=== PATIENT | female | born 1940 | race Caucasian/White ===

== ENCOUNTER 2016-05-07 12:51 | Inpatient (IN) | payer MEDICARE, OTHER ==
[~2016-05-07] VITALS: Ht 170.2 cm; Wt 77.9 kg
[~2016-05-07 12:51] MED LIST: ALPR0.25 PO; AMLO10TA2 PO; ATOR10TA PO; NOR10T PO; TRIAMTERENE/HCTZ PO; ZOLP10TA6 PO; [UNRECOGNIZED DRUG - OTHER]
[2016-05-07 13:44] LABS: Basophils # (auto) 0 uL; Basophils % (auto) 0.3 % (0.0-2.0); Eosinophils # (auto) 0.1 uL; Eosinophils % (auto) 2.1 % (0.0-7.0); Hematocrit 47.4 % (36.0-46.0); Hemoglobin 15.5 g/dL (12.2-16.2); Lymphocytes # (auto) 2.3 uL; Lymphocytes % (auto) 32.9 % (10.0-50.0); Mean Corpuscular Hemoglobin 28.7 pg (28.0-32.0); Mean Corpuscular Hgb Conc. 32.6 g/dL (32.0-36.0); Mean Corpuscular Volume 87.9 fL (80.0-100.0); Monocytes # (auto) 0.6 uL; Monocytes % (auto) 8.2 % (0.0-12.0); Neutrophils % (auto) 56.5 % (37.0-80.0); Platelet Count (auto) 221 10^3/uL (140-450); Red Cell Distribution Width 14.3 % (11.6-16.0)
[2016-05-07 14:01] LABS: Albumin 3.8 g/dL (3.4-5.0); BUN/Creatinine Ratio 15.3; Bilirubin, Total 0.8 mg/dL (0.2-1.0); Calcium 9.6 mg/dL (8.5-10.1); Potassium 3.9 mmol/L (3.5-5.1); Total Protein 8.2 g/dL (6.4-8.2)
[2016-05-07] MEDS ORDERED: ASPirin 81 mg TAB PO ONE (15:30)
[2016-05-07] MEDS ORDERED: cloNIDine HCL 0.1 MG TAB PO ONE (15:45)
[2016-05-07 15:56] LABS: B-Type Natriuretic Peptide 67.86 pg/mL (0-100)
[2016-05-07 15:58] LABS: Temperature: 21.9 C (20.0-25.0)
[2016-05-07] MEDS ORDERED: LORazepam 0.5 MG TAB PO PRN (16:00)
[2016-05-07] MEDS ORDERED: DEXTROSE (50%) 50ML SYRG IV PRN (16:00)
[2016-05-07] MEDS ORDERED: TEMAZEPAM 15 MG CAP PO PRN (16:00)
[2016-05-07] MEDS ORDERED: PROMETHAZINE HCL 25 MG/ML 1ML IV PRN (16:00)
[2016-05-07] MEDS ORDERED: MORPHINE SULF INJ 2 MG/ML SYRINGE 1ML IV PRN ×2 (16:00)
[2016-05-07] MEDS ORDERED: ACETAMINOPHEN 500 MG TAB PO PRN (16:00)
[2016-05-07] MEDS ORDERED: NITROGLYCERIN 0.4 MG SL TAB SL PRN (16:00)
[2016-05-07] MEDS ORDERED: LABETALOL HCL 5 MG/ML 4ML SYRINGE IV PRN ×2 (16:00)
[2016-05-07] MEDS ORDERED: LACTULOSE 20Gm/30ML SOLN PO PRN (16:00)
[2016-05-07 16:29] LABS: Urine Bilirubin Negative (Negative); Urine Blood Negative /uL (Negative); Urine Color Colorless (Yellow); Urine Glucose Normal (Normal); Urine Ketone Negative (Negative); Urine Nitrite Negative (Negative); Urine RBC <1 /hpf (0 - 4); Urine Squamous Epithelial Cell FEW /hpf (<5); Urine Urobilinogen Normal (Negative); Urine pH 5.5 (5.0-8.0)
[2016-05-07 16:53] LABS: Temperature: 22.7 C (20.0-25.0)
[2016-05-07] MEDS: InsuLIN REG 1unit/0.01ml Soln (100units/ml) SC SCH ×2 (17:00→22:00)
[2016-05-07] MEDS: ENOXAPARIN SOD 40 MG/0.4 ML SYRINGE SC SCH (17:04)
[2016-05-07] MEDS: ACCU-CHEK COMFORT CURVE STRIP VI SCH ×2 (17:04→22:13)
[2016-05-07] MEDS ORDERED: ATORVASTATIN 20 MG TAB PO SCH (22:00)
[2016-05-07] MEDS: ATORVASTATIN 20 MG TAB PO SCH (22:13)
[2016-05-07 22:51] LABS: Cholesterol 147 mg/dL (<200); HDL Cholesterol 59 mg/dL (40-59); LDL Cholesterol 79 mg/dL (<100); Triglycerides 148 mg/dL (<150)
[2016-05-08] MEDS: hydrALAZINE HCL 20 MG/ML VL IV PRN (02:36)
[2016-05-08] MEDS: HYDROcodone-ACET 5/325MG TAB PO PRN ×2 (03:18→10:41)
[2016-05-08 04:00] VITALS: BP 175/82
[2016-05-08 05:01] LABS: Albumin 3.8 g/dL (3.4-5.0); BUN/Creatinine Ratio 17.1; Bilirubin, Total 0.8 mg/dL (0.2-1.0); Potassium 3.6 mmol/L (3.5-5.1); Total Protein 7.4 g/dL (6.4-8.2)
[2016-05-08 05:04] VITALS: BP 138/64
[2016-05-08] MEDS: InsuLIN REG 1unit/0.01ml Soln (100units/ml) SC SCH ×4 (06:29→21:56)
[2016-05-08] MEDS: ACCU-CHEK COMFORT CURVE STRIP VI SCH ×4 (06:29→21:56)
[2016-05-08 08:09] VITALS: BP 146/77
[2016-05-08] MEDS: ASPirin 81 mg TAB PO SCH (10:37)
[2016-05-08 17:24] VITALS: BP 160/94
[2016-05-08] MEDS: ENOXAPARIN SOD 40 MG/0.4 ML SYRINGE SC SCH (20:06)
[2016-05-08] MEDS: CYANOCOBALAMIN 500 MCG TAB PO SCH (21:20)
[2016-05-08] MEDS: ATORVASTATIN 20 MG TAB PO SCH (21:20)
[2016-05-08 22:00] VITALS: BP 145/73
[2016-05-09 05:00] VITALS: BP 157/78
[2016-05-09] MEDS: InsuLIN REG 1unit/0.01ml Soln (100units/ml) SC SCH ×3 (06:16→16:55)
[2016-05-09] MEDS: ACCU-CHEK COMFORT CURVE STRIP VI SCH ×3 (06:16→16:55)
[2016-05-09] MEDS ORDERED: INFLUENZA QUAD 2016-2017 0.5 ML SYRG IM ONE (08:00)
[2016-05-09 08:58] VITALS: BP 176/80
[2016-05-09] MEDS: CYANOCOBALAMIN 500 MCG TAB PO SCH (09:05)
[2016-05-09] MEDS: hydrALAZINE HCL 20 MG/ML VL IV PRN (09:05)
[2016-05-09] MEDS: ASPirin 81 mg TAB PO SCH (09:05)
[2016-05-09 09:48] VITALS: BP 164/74
[2016-05-09] MEDS ORDERED: PREGABALIN 25 MG CAP PO SCH (11:00)
[2016-05-09 13:00] VITALS: BP 149/71
[2016-05-09 15:12] VITALS: BP 149/71
[2016-05-09] MEDS: ENOXAPARIN SOD 40 MG/0.4 ML SYRINGE SC SCH (16:55)
[2016-05-09 17:00] VITALS: BP 147/74
== END 2016-05-09 18:00 | disposition home or self-care (01) | DRG 291 ==
LOC: ER 12:52 → TELE 12:53 → TELE-WESTW 05-08 04:07
PROVIDERS: ADMIT Internal Medicine; ATTEND Family Medicine
DX: I13.0 Hypertensive heart and chronic kidney disease with heart failure and stage 1 through stage 4 chronic kidney disease, or unspecified chronic kidney disease (principal); I63.9 Cerebral infarction, unspecified; B02.29 Other postherpetic nervous system involvement; N18.3 Chronic kidney disease, stage 3 (moderate); E11.21 Type 2 diabetes mellitus with diabetic nephropathy; E11.22 Type 2 diabetes mellitus with diabetic chronic kidney disease; E78.5 Hyperlipidemia, unspecified; E83.119 Hemochromatosis, unspecified; F17.210 Nicotine dependence, cigarettes, uncomplicated; G56.03 Carpal tunnel syndrome, bilateral upper limbs; I50.9 Heart failure, unspecified; J44.9 Chronic obstructive pulmonary disease, unspecified; G89.29 Other chronic pain; M54.5 Low back pain; B02.9 Zoster without complications; Z79.899 Other long term (current) drug therapy; Z90.49 Acquired absence of other specified parts of digestive tract; Z98.51 Tubal ligation status; Z82.49 Family history of ischemic heart disease and other diseases of the circulatory system; Z23 Encounter for immunization
CPT/HCPCS: 36415; 70450; 70551; 80053; 80061; 81001; 82550; 82607; 82746; 82962; 83036; 83880; 84443; 84484; 85025; 85652; 93005; 93306; 93886; 94761; 97001; G0434; J3490

== ENCOUNTER 2020-03-10 12:08 | Inpatient (IN) | payer MEDICARE, OTHER ==
[~2020-03-10] VITALS: Ht 170.2 cm; Wt 70.2 kg
[~2020-03-10 12:08] MED LIST changes: +AMLO10TA13 PO; -AMLO10TA2 PO; -TRIAMTERENE/HCTZ PO; -[UNRECOGNIZED DRUG - OTHER]
[2020-03-10 13:29] LABS: Basophils # (auto) 0 10 ^3/uL (0-0.2); Basophils % (auto) 0.6 % (0.0-2.0); Eosinophils # (auto) 0 10 ^3/uL (0-0.8); Eosinophils % (auto) 0.6 % (0.0-7.0); Hematocrit 50.2 % (36.0-46.0); Mean Corpuscular Hemoglobin 29.9 pg (28.0-32.0); Mean Corpuscular Hgb Conc. 33.8 g/dL (32.0-36.0); Mean Corpuscular Volume 88.6 fL (80.0-100.0); Monocytes # (auto) 0.6 10 ^3/uL (0-1.3); Monocytes % (auto) 9.7 % (0.0-12.0); Neutrophils # (auto) 4.8 10 ^3/uL (1.6-8.6); Neutrophils % (auto) 73.1 % (37.0-80.0); Nucleated Red Blood Cells % 0.1 %; Platelet Count (auto) 194 10^3/uL (140-450); Red Blood Cells 5.67 10^6/uL (4.0-5.20); White Blood Cell 6.5 10^3/uL (4.4-10.8)
[2020-03-10] MEDS ORDERED: cloNIDine HCL 0.1 MG TAB PO ONE (13:45)
[2020-03-10 13:46] LABS: Anion Gap 11 (5-15); Blood Urea Nitrogen 13 mg/dL (7-18); Calcium 9.7 mg/dL (8.5-10.1); Carbon Dioxide 23 mmol/L (21-32); Chloride 105 mmol/L (98-107); Glucose 111 mg/dL (74-106); Potassium 3.5 mmol/L (3.5-5.1); Sodium 139 mmol/L (136-145)
[2020-03-10 13:48] LABS: Alanine Aminotransferase 26 U/L (13-56); Aspartate Aminotransferase 22 U/L (15-37); BUN/Creatinine Ratio 12.7; GFR African American 67 mL/min; GFR Non-African American 55 mL/min
[2020-03-10 13:52] LABS: Alkaline Phosphatase 98 U/L (45-117); Bilirubin, Total 0.8 mg/dL (0.2-1.0); Total Protein 8.2 g/dL (6.4-8.2)
[2020-03-10] MEDS ORDERED: ACETAMINOPHEN 500 MG TAB PO PRN (18:30)
[2020-03-10] MEDS ORDERED: LACTULOSE 20Gm/30ML SOLN PO PRN (18:30)
[2020-03-10] MEDS ORDERED: TEMAZEPAM 15 MG CAP PO PRN (18:30)
[2020-03-10] MEDS ORDERED: DEXTROSE (50%) 50ML SYRG IV PRN (18:30)
[2020-03-10] MEDS ORDERED: ONDANSETRON HCL 4 MG/2 ML VIAL IV PRN (18:30)
[2020-03-10] MEDS ORDERED: traMADol HCL 50 MG TAB PO PRN (18:30)
[2020-03-10] MEDS ORDERED: NITROGLYCERIN 0.4 MG SL TAB SL PRN (18:30)
[2020-03-10] MEDS ORDERED: MORPHINE SULF INJ 2 MG/ML SYRINGE 1ML IV PRN (18:30)
[2020-03-10 20:10] VITALS: BP 126/69
--- NOTE | 2020-03-10 20:10 | NUR ---
assumed care of pt at this time, who ambulated to bed from [facility] with steady gait, IV 22g to lt hand flushes freely, site benign. pt is free from s/s of distress.
[2020-03-10 21:00] VITALS: BP 126/69
[2020-03-10] MEDS ORDERED: ALPRAZolam 0.25 MG TAB PO SCH (22:00)
[2020-03-10] MEDS: InsuLIN REG 1unit/0.01ml Soln (100units/ml) SC SCH (22:00)
[2020-03-10] MEDS: SODIUM CHLORIDE 0.9% 1,000 ML IV SCH (22:00)
[2020-03-10] MEDS: ACCU-CHEK COMFORT CURVE STRIP VI SCH (22:20)
[2020-03-10] MEDS: CLINDAMYCIN 600MG IV 50 ML IV SCH (22:20)
[2020-03-10] MEDS: ZOLPIDEM TARTRATE 5 MG TAB PO SCH (22:20)
[2020-03-10] MEDS: ATORVASTATIN 20 MG TAB PO SCH (22:20)
[2020-03-11] MEDS: SODIUM CHLORIDE 0.9% 1,000 ML IV SCH (04:30)
[2020-03-11 05:00] VITALS: BP 155/76
[2020-03-11] MEDS: ACCU-CHEK COMFORT CURVE STRIP VI SCH ×2 (06:12→11:57)
[2020-03-11] MEDS: CLINDAMYCIN 600MG IV 50 ML IV SCH ×3 (06:12→22:27)
[2020-03-11] MEDS: InsuLIN REG 1unit/0.01ml Soln (100units/ml) SC SCH ×2 (06:12→11:30)
--- NOTE | 2020-03-11 07:30 | NUR ---
Opening Shift Note Assumed care of patient, awake and alert. No S/S of distress/SOB or pain, slight redness and swelling noted ti right side of face. Instructed on POC and to call for assist PRN, will continue to monitor for changes Q1hr and PRN.
[2020-03-11] MEDS: cefTRIAXone 1GM/50ML D5W 50 ML IV SCH (09:14)
[2020-03-11] MEDS: ENOXAPARIN SOD 40 MG/0.4 ML SYRINGE SC SCH (09:28)
[2020-03-11] MEDS: amLODIPine BESYLATE 5 MG TAB PO SCH (09:28)
[2020-03-11 09:31] VITALS: BP 151/84
[2020-03-11 13:00] VITALS: BP 163/89
[2020-03-11 17:00] VITALS: BP 159/83
[2020-03-11] MEDS: IPRATROPIUM BROM 0.5 MG/2.5ML INH SOL NEB SCH (18:00)
[2020-03-11] MEDS: ALBUTEROL SULF 2.5 MG/0.5ML(0.5%) NEB SOLN NEB SCH (18:00)
[2020-03-11 21:33] VITALS: BP 147/77
[2020-03-11] MEDS: ATORVASTATIN 20 MG TAB PO SCH (22:27)
[2020-03-11] MEDS: ZOLPIDEM TARTRATE 5 MG TAB PO SCH (22:27)
--- NOTE | 2020-03-12 02:40 | NUR ---
Respiratory note: PT FOUND ON PHARMACY MED RUN PRINT OUT. SPO2 96% ON 2L NC, HR 74, RR 18. NO DISTRESS NOTED, TXS WILL START AT NEXT SCHEDULED TX.
[2020-03-12 05:10] VITALS: BP 153/79
[2020-03-12] MEDS: IPRATROPIUM BROM 0.5 MG/2.5ML INH SOL NEB SCH ×5 (06:30→23:33)
[2020-03-12] MEDS: ALBUTEROL SULF 2.5 MG/0.5ML(0.5%) NEB SOLN NEB SCH ×5 (06:30→23:33)
--- NOTE | 2020-03-12 07:30 | NUR ---
Opening Shift Note Assumed care of patient, awake and alert. No S/S of distress/SOB or pain. Instructed on POC and to call for assist PRN, will continue to monitor for changes Q1hr and PRN. Fall precautions in place per safety protocol.
[2020-03-12 08:02] LABS: Basophils # (auto) 0 10 ^3/uL (0-0.2); Basophils % (auto) 0.6 % (0.0-2.0); Eosinophils # (auto) 0.1 10 ^3/uL (0-0.8); Eosinophils % (auto) 2.9 % (0.0-7.0); Hematocrit 46.2 % (36.0-46.0); Hemoglobin 15.6 g/dL (12.2-16.2); Lymphocytes # (auto) 1.5 10 ^3/uL (0.4-5.4); Lymphocytes % (auto) 29.2 % (10.0-50.0); Mean Corpuscular Hemoglobin 29.9 pg (28.0-32.0); Mean Corpuscular Hgb Conc. 33.8 g/dL (32.0-36.0); Mean Corpuscular Volume 88.5 fL (80.0-100.0); Monocytes # (auto) 0.6 10 ^3/uL (0-1.3); Neutrophils # (auto) 2.8 10 ^3/uL (1.6-8.6); Neutrophils % (auto) 55.3 % (37.0-80.0); Nucleated Red Blood Cells % 0.1 %; Platelet Count (auto) 172 10^3/uL (140-450); Red Blood Cells 5.23 10^6/uL (4.0-5.20); Red Cell Distribution Width 14.1 % (11.8-14.3)
[2020-03-12 08:15] LABS: Albumin 3.4 g/dL (3.4-5.0); Calcium 9.3 mg/dL (8.5-10.1); Magnesium 2.3 mg/dL (1.6-2.6); Potassium 3.5 mmol/L (3.5-5.1)
[2020-03-12 08:20] LABS: BUN/Creatinine Ratio 15.7; Bilirubin, Total 0.7 mg/dL (0.2-1.0); Total Protein 6.9 g/dL (6.4-8.2)
[2020-03-12 09:00] VITALS: BP 167/93
--- NOTE | 2020-03-12 09:24 | NUR ---
Pt is n alert and oriented female tht is able to make her needs known. Pt resides alone and functioned independently prior to admission. Pt uses a cane and was on service with [facility] prior to admission pt has a son in the area that can assist if needed. Pt to resume [facility] services upon discharge. Contacted [facility]([phone])and faxed clinical information to Patricia. Received confirmation of aaccepting pt from [place] and services will resume 24 hours post discharge. Addendum: 03/12/20 at 0928 by DIXIE DUMONT Amended: Links added.
--- NOTE | 2020-03-12 09:30 | NUR ---
Hospitalist MD Bermudez at bedside, aware of patient status. Per MD Bermudez, reassess BP in 1 hour and let her know what it is. Will carry out new orders and cont to monitor patient.
[2020-03-12] MEDS: cefTRIAXone 1GM/50ML D5W 50 ML IV SCH (09:35)
[2020-03-12] MEDS: amLODIPine BESYLATE 5 MG TAB PO SCH (09:36)
[2020-03-12] MEDS: ENOXAPARIN SOD 40 MG/0.4 ML SYRINGE SC SCH (10:00)
--- NOTE | 2020-03-12 11:15 | NUR ---
BP Reassessed PB reassessment 166-92. Notified MD Bermudez, new orders input.
[2020-03-12] MEDS ORDERED: LISINOPRIL 20 MG TAB PO ONE (11:30)
[2020-03-12] MEDS ORDERED: SACC250C PO (11:31)
[2020-03-12] MEDS ORDERED: LISI-646 PO (11:31)
[2020-03-12] MEDS ORDERED: ASPI-378 PO (11:31)
[2020-03-12] MEDS ORDERED: CLIN300C8 PO (11:31)
[2020-03-12] MEDS ORDERED: ALPRAZolam 0.25 MG TAB PO ONE ×2 (12:45)
[2020-03-12 13:00] VITALS: BP 163/82
[2020-03-12] MEDS ORDERED: NIFE1TAB30 PO (13:57)
[2020-03-12] MEDS ORDERED: NIFEdipine ER 30 MG TAB PO ONE (14:00)
[2020-03-12] MEDS: CLINDAMYCIN HCL 150 MG CAP PO SCH ×2 (14:44→22:05)
--- NOTE | 2020-03-12 14:50 | NUR ---
BP BP 210/87, reassessed 192/89. Notified MD Bermudez.
--- NOTE | 2020-03-12 15:30 | NUR ---
Manual BP 156/83, reassessed 165/85. New medication orders received. Will carry out new orders and cont monitoring patient.
--- NOTE | 2020-03-12 15:45 | NUR ---
Hospitalist MD Bermudez at bedside, per MD Bermudez DC patient per nurses judgment on BP. Will cont to monitor patient.
[2020-03-12 16:56] VITALS: BP 149/80
--- NOTE | 2020-03-12 18:00 | NUR ---
DC Held Patient cont ti have headache , stating she will feel safer being under observation tonight and discharging in the AM. Patient also, states "I don't know if I can find a ride this late." This RN, advised patient not to worry, and we can DC tomorrow morning. Will endorse.
--- NOTE | 2020-03-12 19:30 | NUR ---
Opening Shift Note Assumed care of patient, awake and alert. No S/S of distress/SOB or pain. Instructed on POC and to call for assist PRN, will continue to monitor for changes Q1hr and PRN.
[2020-03-12 22:00] VITALS: BP 124/57
[2020-03-12] MEDS: ZOLPIDEM TARTRATE 5 MG TAB PO SCH (22:04)
[2020-03-12] MEDS: ATORVASTATIN 20 MG TAB PO SCH (22:05)
[2020-03-12] MEDS: ALPRAZolam 0.25 MG TAB PO SCH (22:06)
--- NOTE | 2020-03-12 23:33 | NUR ---
Respiratory note: PT FOUND ASLEEP ON ROOM AIR. SPO2 ON RA WAS 86%. TX GIVEN AT THIS TIME AND PT PLACED BACK ON 2L NC WITH AN SPO2 OF 95%. PT TOLERATED WELL.
[2020-03-13] MEDS ORDERED: DIGOXIN (250MCG/ML) 2 ML AMPULE IV ONE ×2 (04:45→05:45)
[2020-03-13 05:00] VITALS: BP 101/66
--- NOTE | 2020-03-13 06:00 | NUR ---
Patient's hear rate on telemetry was higher than 120. Patient rounded, no complains of pain nor respiratory distress. Vital signs taken. EKG done. Hospitalist Horacio Cavanaugh NP, paged, updated with patient's status. Order received for Digoxin 125 mcg IV, may repeat X 1 if HR>120. Order noted and carried out. Report will be given to oncoming RN.
[2020-03-13] MEDS: CLINDAMYCIN HCL 150 MG CAP PO SCH ×3 (06:10→22:26)
[2020-03-13] MEDS: IPRATROPIUM BROM 0.5 MG/2.5ML INH SOL NEB SCH ×3 (07:07→19:04)
[2020-03-13] MEDS: ALBUTEROL SULF 2.5 MG/0.5ML(0.5%) NEB SOLN NEB SCH ×3 (07:07→19:04)
--- NOTE | 2020-03-13 07:30 | NUR ---
Opening Shift Note Assumed care of patient, awake and alert. No S/S of distress/SOB or pain on 2 LPM . Instructed on POC and to call for assist PRN, will continue to monitor for changes Q1hr and PRN. Bed in low and locked position, rails up x2, no-slip socks on.
[2020-03-13 09:00] VITALS: BP 113/68
[2020-03-13] MEDS ORDERED: LISINOPRIL 20 MG TAB PO SCH (10:00)
[2020-03-13] MEDS ORDERED: NIFEdipine ER 30 MG TAB PO SCH ×2 (10:00)
[2020-03-13] MEDS: ALPRAZolam 0.25 MG TAB PO SCH (10:16)
[2020-03-13] MEDS: ENOXAPARIN SOD 40 MG/0.4 ML SYRINGE SC SCH (10:16)
--- NOTE | 2020-03-13 10:23 | NUR ---
DR GRISSOM AT BEDSIDE MADE AWARE OF ATRIAL FIBRILLATION THIS AM AND DOSE OF DIG GIVEN. PER MD VERIFY PATIENT HISTORY AND MED LIST FOR BLOOD THINNER. CALL TO DR Kaiden GORE OFFICE [phone] AND PATIENT HAS NO HISTORY OF ATRIAL FIBRILLATION ON FILE AT THEIR OFFICE WELL NO BLOOD THINNERS ASIDE FROM ASA 81MG.
[2020-03-13] MEDS ORDERED: CLON0.1T PO (11:10)
[2020-03-13] MEDS ORDERED: LOSA-39 PO (11:10)
[2020-03-13] MEDS ORDERED: CHOL20007 PO (11:10)
[2020-03-13] MEDS ORDERED: LISI-648 PO (11:10)
[2020-03-13] MEDS ORDERED: VERA240T17 PO (11:10)
[2020-03-13] MEDS ORDERED: DOCU-94 PO (11:10)
[2020-03-13] MEDS ORDERED: METF-370 PO (11:10)
[2020-03-13] MEDS ORDERED: ATOR20TA PO (11:10)
[2020-03-13] MEDS ORDERED: FLORASTOR (S. BOULARDII) 250 MG CAP PO ONE (11:44)
[2020-03-13] MEDS ORDERED: METOPROLOL TARTRATE 25 MG TAB PO ONE (11:45)
[2020-03-13] MEDS ORDERED: ASPirin-EC 81 mg tab PO ONE (11:45)
[2020-03-13] MEDS ORDERED: VERAPAMIL HCL 120 mg ER tab PO ONE (12:00)
[2020-03-13 13:00] VITALS: BP 127/67
[2020-03-13] MEDS ORDERED: guaiFENesin 200 MG/10 ML UD PO PRN (14:00)
--- NOTE | 2020-03-13 14:00 | NUR ---
PAGE TO DR GRISSOM PATIENT COMPLAINING OF HEART BURN AFTER EATING SALAD DRESSING AND PERSISTENT COUGH, ORDER RECEIVED WILL CARRY OUT.
--- NOTE | 2020-03-13 14:39 | NUR ---
Patient c/o cough. Medication given as ordered.
[2020-03-13] MEDS: CALCIUM CARB 500 MG CHEW TAB PO PRN (14:43)
--- NOTE | 2020-03-13 18:00 | NUR ---
PATIENT COMPLAINS OF HEART BURN/ CHEST PAIN COMPLAINING OF STOMACH PAIN, FEELS LIKE HEART BURN TRAVELLING UP CHEST TO NECK 01/10. PATIENT ALERT AND ORIENTED, HR SINUS TACHYCARDIA 105 BP 154/53 O2 87% ON ROOM AIR. PLACED ON O2 AND EKG PERFORMED SHOWING SINUS TACHYCARDIA 104. NITRO X1 ADMINISTERED, PATIENT TOLERATED WELL AFTER 5 MINUTES BP 125/66 HR 109, PATIENT STATING SOME RELIEF OF PAIN 7/10. OFFERED ANOTHER NITRO AND PATIENT REFUSED STATING THE ONE IN HER MOUTH WAS STILL DISSOLVING. AFTER 5 MINS BP 104/57 HR 106, PATIENT STATES PAIN IS MUCH IMPROVED TO 4/10. REFUSING ADDITIONAL NITRO AT THIS TIME DUE TO LOW BLOOD PRESSURE. PAGE TO PIPELINES SUPERVISOR HOSPITALIST FOR POSSIBLE ORDERS. AWAITING CALL BACK.
[2020-03-13] MEDS: MORPHINE SULF INJ 2 MG/ML SYRINGE 1ML IV PRN ×2 (18:43→22:00)
--- NOTE | 2020-03-13 19:30 | NUR ---
Opening Shift Note Assumed care of patient, awake and alert. No S/S of distress/SOB or pain. game room attendant at bedside for patient safety. Instructed on POC and to call for assist PRN, will continue to monitor for changes Q1hr and PRN.
[2020-03-13] MEDS ORDERED: METOPROLOL TARTRATE 25 MG TAB PO SCH (22:00)
[2020-03-13] MEDS: ATORVASTATIN 20 MG TAB PO SCH (22:26)
[2020-03-14] MEDS: IPRATROPIUM BROM 0.5 MG/2.5ML INH SOL NEB SCH ×4 (00:30→18:30)
[2020-03-14] MEDS: ALBUTEROL SULF 2.5 MG/0.5ML(0.5%) NEB SOLN NEB SCH ×4 (00:30→18:30)
[2020-03-14] MEDS: ZOLPIDEM TARTRATE 5 MG TAB PO SCH ×2 (00:40→21:45)
[2020-03-14] MEDS: ALPRAZolam 0.25 MG TAB PO SCH ×3 (00:41→21:46)
[2020-03-14] MEDS: CALCIUM CARB 500 MG CHEW TAB PO PRN ×2 (00:41→10:47)
[2020-03-14] MEDS: CLINDAMYCIN HCL 150 MG CAP PO SCH ×3 (07:02→21:45)
--- NOTE | 2020-03-14 07:30 | NUR ---
Patient has no complains at this time, no shortness of breath. All needs attended to. Report given to FOREST Brown.
[2020-03-14 08:00] VITALS: BP 118/82
--- NOTE | 2020-03-14 08:00 | NUR ---
Opening Shift Note Assumed care of patient, awake and alert. No S/S of distress/SOB or pain. Instructed on POC and to call for assist PRN, will continue to monitor for changes Q1hr and PRN. Bed locked in lowest position with two side rails up and call light in reach.
[2020-03-14 08:50] VITALS: BP 118/82
[2020-03-14] MEDS: ENOXAPARIN SOD 40 MG/0.4 ML SYRINGE SC SCH (10:47)
[2020-03-14] MEDS: ASPirin-EC 81 mg tab PO SCH (10:48)
[2020-03-14] MEDS: FLORASTOR (S. BOULARDII) 250 MG CAP PO SCH (10:48)
[2020-03-14] MEDS: VERAPAMIL HCL 120 mg ER tab PO SCH (10:50)
--- NOTE | 2020-03-14 11:36 | NUR ---
Nutrition Assessment Est energy needs [id number] kcal (20-25 kcal/kg BW 70.4kg) Est protein needs 56-70g (0.8-1g/kg BW 70.4kg) Will monitor and reassess prn. Addendum: 03/14/20 at [address] Amended: Links added.
[2020-03-14 13:00] VITALS: BP 141/74
[2020-03-14] MEDS: SODIUM CHLORIDE 0.9% 500 ML IV SCH ×3 (15:00→21:30)
[2020-03-14 16:38] VITALS: BP 136/69
[2020-03-14] MEDS: ATORVASTATIN 20 MG TAB PO SCH (21:46)
[2020-03-14] MEDS: APIXABAN 2.5 MG TAB PO SCH (21:46)
[2020-03-14] MEDS: CARVEDILOL 3.125 MG TAB PO SCH (21:46)
[2020-03-14 22:00] VITALS: BP 111/56
[2020-03-15] VITALS (7 sets, daily range): BP systolic 111–142; BP diastolic 56–79
[2020-03-15] MEDS: IPRATROPIUM BROM 0.5 MG/2.5ML INH SOL NEB SCH ×5 (00:25→19:11)
[2020-03-15] MEDS: ALBUTEROL SULF 2.5 MG/0.5ML(0.5%) NEB SOLN NEB SCH ×5 (00:25→19:11)
[2020-03-15] MEDS: SODIUM CHLORIDE 0.9% 500 ML IV SCH ×4 (01:00→17:39)
[2020-03-15] MEDS: CLINDAMYCIN HCL 150 MG CAP PO SCH ×2 (06:30→18:11)
--- NOTE | 2020-03-15 07:30 | NUR ---
Opening Shift Note Assumed care of patient, awake and alert. No S/S of distress/SOB or pain. Instructed on POC and to call for assist PRN, will continue to monitor for changes Q1hr and PRN. Bed is locked and in lowest position. Call light within reach.
[2020-03-15] MEDS: CARVEDILOL 3.125 MG TAB PO SCH (09:15)
[2020-03-15] MEDS: VERAPAMIL HCL 120 mg ER tab PO SCH (09:15)
[2020-03-15] MEDS: ASPirin-EC 81 mg tab PO SCH (09:15)
[2020-03-15] MEDS: APIXABAN 2.5 MG TAB PO SCH (09:15)
[2020-03-15] MEDS: ALPRAZolam 0.25 MG TAB PO SCH (09:16)
[2020-03-15] MEDS: FLORASTOR (S. BOULARDII) 250 MG CAP PO SCH (09:16)
[2020-03-15] MEDS: CALCIUM CARB 500 MG CHEW TAB PO PRN (09:23)
--- NOTE | 2020-03-15 10:00 | NUR ---
PENDING DISCHARGE PATIENT HAS PENDING DISCHARGE DUE TO HIGH D-DIMER VALUE PER DR. LLANES. NEW ORDERS RECEIVED. ONCE CT ANGIO IS DONE AND RESULTED DR. LLANES WILL DETERMINE DISCHARGE. WILL CONTINUE TO MONITOR PATIENT.
[2020-03-15] MEDS ORDERED: PANT40TA2 PO (10:29)
[2020-03-15] MEDS ORDERED: APIX2.5T PO (10:29)
[2020-03-15] MEDS ORDERED: SACC250C PO (10:29)
[2020-03-15] MEDS ORDERED: CAR3125T PO (10:29)
[2020-03-15] MEDS ORDERED: CLIN300C8 PO (10:29)
[2020-03-15 11:52] LABS: BUN/Creatinine Ratio 28.9; Calcium 9.1 mg/dL (8.5-10.1); Potassium 4.4 mmol/L (3.5-5.1)
[2020-03-15] MEDS ORDERED: IOHEXOL 350 MG/ML 100ML IJ ONE (12:38)
--- NOTE | 2020-03-15 12:56 | NUR ---
PATIENT WAS SALINE LOCKED TO GO DOWN FOR CT ANGIO. PATIENT HAS BEEN NPO AFTER BREAKFAST. PATIENT IS AOX4 AND IS ABLE TO AMBULATE WITH ASSIST AND FRONT WHEEL WALKER WILL AWAIT PATIENT RETURN.
--- NOTE | 2020-03-15 14:00 | NUR ---
DR. LLANES INFORMED DR. LLANES REGARDING CT ANGIO BEING RESULTED. READ REPORT TO DR. LLANES PER DR. LLANES PATIENT CAN BE DISCHARGED AND WILL FOLLOW UP WITH PULMONOLOGY OUTPATIENT. PATIENT WILL FOLLOW UP WITH PRIMARY DR. GORE TO OBTAIN REFERRAL. WILL CONTINUE WITH POC.
--- NOTE | 2020-03-15 16:00 | NUR ---
SON FRANKLIN PHONE CALL RECEIVED FROM SON FRANKLIN REGARDING REQUEST FOR MEDICATION REFILL BEFORE DISCHARGED. SON FRANKLIN IS REQUESTING FOR VERAPAMIL AND NORCO ONLY HAVING ENOUGH FOR A FEW DAYS. INFORMED SON DR. LLANES WILL BE PAGED REGARDING MEDICATION REFILL. DR. LLANES PAGED WILL AWAIT PHONE CALL.
--- NOTE | 2020-03-15 16:30 | NUR ---
DR. LLANES PAGED DR. LLANES REGARDING MEDICATION REFILL PER SON FRANKLIN REQUEST. WILL AWAIT PHONE CALL.
--- NOTE | 2020-03-15 18:20 | NUR ---
PHONE CALL MADE TO SON FRANKLIN TO UPDATE ON PATIENT DISCHARGE. 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 PATIENT PREFERRED PHARMACY IS CLOSED. INFORMED SON [facility] OPEN WEDNESDAY FROM 9AM-3PM. SON STATED HE WORKED AND DOES NOT FEEL COMFORTABLE TAKING PATIENT HOME. WILL PAGE HOSPITALIST REGARDING DISCHARGE AND SONS CONCERNS.
--- NOTE | 2020-03-15 18:51 | NUR ---
HOSPITALIST PAGED HOSPITALIST REGARDING SON REFUSING TO FASHION DESIGNER PATIENT DUE TO MEDICATION REFILL REQUEST AND PHARMACY BEING CLOSED. PER DR. TORRES HOLD DISCHARGE FOR 03/16/20. WILL CONTINUE TO MONITOR PATIENT.
--- NOTE | 2020-03-15 19:02 | NUR ---
Respiratory note: INCREASED FIO2 TO 4LNC AT THIS TIME
--- NOTE | 2020-03-15 19:11 | NUR ---
Respiratory note: PT REFUSE MIDNIGHT MED NEB AT THIS TIME
[2020-03-16] MEDS: CARVEDILOL 3.125 MG TAB PO SCH ×2 (00:06→10:23)
[2020-03-16] MEDS: APIXABAN 2.5 MG TAB PO SCH ×2 (00:07→10:23)
[2020-03-16] MEDS: ZOLPIDEM TARTRATE 5 MG TAB PO SCH (00:07)
[2020-03-16] MEDS: ATORVASTATIN 20 MG TAB PO SCH (00:13)
[2020-03-16] MEDS: ALPRAZolam 0.25 MG TAB PO SCH ×2 (00:13→10:24)
[2020-03-16] MEDS: CLINDAMYCIN HCL 150 MG CAP PO SCH ×2 (00:14→06:08)
[2020-03-16] MEDS: SODIUM CHLORIDE 0.9% 500 ML IV SCH ×2 (00:21→07:57)
[2020-03-16 05:00] VITALS: BP 144/72
[2020-03-16] MEDS: ALBUTEROL SULF 2.5 MG/0.5ML(0.5%) NEB SOLN NEB SCH ×2 (06:15→11:51)
[2020-03-16] MEDS: IPRATROPIUM BROM 0.5 MG/2.5ML INH SOL NEB SCH ×2 (06:15→11:51)
[2020-03-16 08:00] VITALS: BP 142/79
[2020-03-16 09:00] VITALS: BP 142/79
[2020-03-16] MEDS: VERAPAMIL HCL 120 mg ER tab PO SCH (10:22)
[2020-03-16] MEDS: FLORASTOR (S. BOULARDII) 250 MG CAP PO SCH (10:24)
[2020-03-16] MEDS ORDERED: VERA240T17 PO (11:44)
--- NOTE | 2020-03-16 11:45 | NUR ---
Dr Underwood bedside with patient discussing plan of care
[2020-03-16 13:17] VITALS: BP 136/74
--- NOTE | 2020-03-16 13:50 | NUR ---
Discharge instructions given as ordered. Encourage to follow up with PMD as instructed on Mar 20 @ 2:00. All questions and concerns addressed. Patient verbalized understanding. Medication reconciliation form completed and copy given to patient. No prescription sent electronically to patients preferred pharmacy. No home medications being held in Pharmacy and no needed vaccines given, patient declined. IV removed with catheter intact and pressure dressing applied. Telemetry unit returned to ICU. Patient taken to vehicle via wheelchair with all personal belongings, accompanied by staff member. No distress noted at time of departure.
== END 2020-03-16 13:50 | disposition home health service (06) | DRG 603 ==
LOC: ER 12:08 → EDBD 12:08 → TELE 18:33 → TELE-WESTW 20:10
PROVIDERS: ADMIT Internal Medicine; ATTEND Internal Medicine
DX: L03.211 Cellulitis of face (principal); I50.32 Chronic diastolic (congestive) heart failure; J96.10 Chronic respiratory failure, unspecified whether with hypoxia or hypercapnia; I13.0 Hypertensive heart and chronic kidney disease with heart failure and stage 1 through stage 4 chronic kidney disease, or unspecified chronic kidney disease; I16.0 Hypertensive urgency; N18.30 Chronic kidney disease, stage 3 unspecified; E11.21 Type 2 diabetes mellitus with diabetic nephropathy; J44.9 Chronic obstructive pulmonary disease, unspecified; E83.119 Hemochromatosis, unspecified; E78.5 Hyperlipidemia, unspecified; E11.22 Type 2 diabetes mellitus with diabetic chronic kidney disease; F41.9 Anxiety disorder, unspecified; Z86.73 Personal history of transient ischemic attack (TIA), and cerebral infarction without residual deficits; F17.210 Nicotine dependence, cigarettes, uncomplicated; I48.0 Paroxysmal atrial fibrillation; Z79.02 Long term (current) use of antithrombotics/antiplatelets; Z79.84 Long term (current) use of oral hypoglycemic drugs; Z82.49 Family history of ischemic heart disease and other diseases of the circulatory system; Z83.3 Family history of diabetes mellitus; Z90.49 Acquired absence of other specified parts of digestive tract
CPT/HCPCS: 36415; 70450; 71045; 71275; 80048; 80053; 80061; 82962; 83036; 83735; 84443; 84484; 85025; 85379; 85652; 93005; 93306; 94640; G0378; J0696; J2405; J3490